=== PATIENT | female | born 1940 | race Caucasian/White ===

== ENCOUNTER 2018-10-15 10:52 | Emergency (ER) | payer MEDICARE, SELFPAY ==
[2018-10-15 10:52] VITALS: BP 191/74; PULSE 64; RESP 16; TEMP 36.8; O2SAT 97; BMI 25.9
--- NOTE | 2018-10-15 11:13 | EKG12_ITS ---
Test Reason : HTN Blood Pressure : / mmHG Vent. Rate : 064 BPM Atrial Rate : 064 BPM P-R Int : 158 ms QRS Dur : 096 ms QT Int : 444 ms P-R-T Axes : 055 -16 054 degrees QTc Int : 458 ms Normal sinus rhythm Normal ECG Confirmed by MADELINE RAYMUNDO ([id number]), state editor DEDRA CASTILLO ([id number]) on 10/21/2018 10:29:19 AM Referred By: SAMI Confirmed By:MADELINE RAYMUNDO
--- NOTE | 2018-10-15 11:17 | NURSING ---
NO OLD EKGS
--- NOTE | 2018-10-15 11:18 | ED.VISSUMM ---
- ER Visit Summary Date of Service: 10/15/18 Chief Complaint: High blood pressure History of Present Illness: The patient is a 78 F with no primary care physician. She reports that she has no medical problems. She had a left cataract surgery today and was found to be hypertensive following this. She states that she was on lisinopril years ago, but has not been on any medications in quite some time. She denies any complaints. No chest pain or shortness of breath. No headache, numbness, or weakness. Physical Examination: Vitals: 98.2, 191/74, 64, 16, 97% room air which is not hypoxic. General: Well-nourished and well-developed. Head: Normocephalic atraumatic. Eyes: Dilated left pupil. Neck: Supple, no lymphadenopathy. No JVD. Nontender. Cardiovascular: Regular rate and rhythm. No murmurs. Respiratory: No respiratory distress. Clear to auscultation bilaterally. Abdominal: Soft, nontender, nondistended, normal bowel sounds. No guarding, rebound, or peritoneal signs. Back: Nontender. Extremities: Nontender, no edema. Skin: Normal color, no rash. Neurologic: Alert and oriented ?3. Cranial nerves II through XII are intact. Normal strength and sensation. Psych: Normal affect. Test Results: EKG is sinus at [address] changes. CBC is normal. Chem-7 shows a glucose of 158. Emergency Department Course and Treatment: Patient rested comfortably without complaint. Her blood pressure did remained elevated. It was in the low 200s over 70s to 90s. She was given 10 mg of lisinopril p.o. Treatment Plan: Patient will be discharged on lisinopril. Instructed to follow-up with Jen Padilla within 1 week for another exam. Return to the emergency department for any worsening symptoms. Disposition: To home in improved and stable condition. Impression: 1. Hypertension. This note was generated with [employer] dictation software. It may contain incorrect words, spelling, and punctuation that were not noted in review of the chart prior to signing ED Disposition - Plan for ED Patient: Instructions: HYPERTENSION, To Be Confirmed Prescriptions: Lisinopril [Prinivil] 10 mg PO DAILY #30 tab Prescription Printed Referrals: Pnig Padilla, [facility] [NON-STAFF] - 1 Week
[2018-10-15 11:42] LABS: Absolute Lymphocyte Count 2.24 X10^3/ul (0.83-4.51); Basophil# 0.03 X10^3/uL; Basophil% 0.3 % (0-1); Eosinophil# 0.06 X10^3/uL; Eosinophils% 0.7 % (0-5); Hematocrit 41.6 % (37-47); Hemoglobin 13.5 g/dl (12.0-15.0); Lymphocyte # 2.24 X10^3/ul (4.0); Lymphocyte % 25.5 % (19-41); Mean Corp Hgb Conc 32.5 g/gl (32-36); Mean Corpuscular Hgb 27.4 pg (27.0-32.0); Mean Corpuscular Volume 84.4 fL (81-99); Monocyte# 0.44 X10^3/uL; Neutrophil % 68.4 % (47-70); Platelet Count 233 K/mm3 (150-450); RBC Distribution Width CV 14.1 % (11.6-14.6); RBC Distribution Width SD 43.5 fl (35.1-43.9); Red Blood Count 4.93 M/mm3 (4.2-5.4); White Blood Count 8.8 K/mm3 (4.4-11.0)
[2018-10-15 11:51] LABS: Anion Gap 7 (5-15); BUN 11 mg/dL (7-18); Calcium,Total 9.1 mg/dL (8.5-10.1); Chloride 106 mmol/L (98-107); Creatinine, Serum 0.78 mg/dL (0.55-1.02); EST Glomerular Filtration Rate 76 mL/min (>60); Est Glom Filt Rate - Afr Amer 92 mL/min (>60); Glucose 158 mg/dL (74-106); Potassium 3.8 mmol/L (3.5-5.1); Sodium Level 139 mmol/L (136-145)
[2018-10-15 11:52] LABS: POSITIVE COUNT NO; POSITIVE DIFFERENTIAL NO; POSITIVE MORPHOLOGY NO
[2018-10-15 12:15] VITALS: BP 222/92; PULSE 64; RESP 14; O2SAT 99
[2018-10-15 12:19] VITALS: BP 221/75
[2018-10-15] MEDS: Lisinopril 10 MG Tablet PO (13:14)
[2018-10-15 13:15] VITALS: BP 202/79; PULSE 72; RESP 18; O2SAT 98
== END 2018-10-15 13:16 | disposition home or self-care (01) ==
LOC: ED 11:41
PROVIDERS: Emergency Provider Emergency Medicine
DX: I10 Essential (primary) hypertension (principal)
CPT/HCPCS: 80048; 85025; 93005; 99283; A4216